=== PATIENT | female | born 1965 | race Caucasian/White ===

== ENCOUNTER 2016-05-18 14:07 | Emergency (ER) | payer BC, OTHER ==
[2016-05-18 14:12] VITALS: BP 121/83; PULSE 65; TEMP 98.1; BMI 22.6
--- NOTE | 2016-05-18 14:34 | PDOC ---
History of Present Illness - General History Source: Patient Exam Limitations: No Limitations <Twila Urbina - Last Filed: 05/18/16 16:30> - General History Source: Patient Exam Limitations: No Limitations <Yeni Jimenez - Last Filed: 05/18/16 16:37> - General Chief Complaint: Chest Pain Stated Complaint: CHEST PAIN Time Seen by Provider: 05/18/16 14:24 - History of Present Illness Initial Comments: 05/18/16 16:36 The patient is a 50-year-old female, with no significant past medical history, who presents to the emergency department with intermittent right chest pain for a week. The patient states the pain is localized across her right chest, is exacerbated during inspiration, is a severity of 7/10 at the end of a breath, and a severity of 3/10 when lying flat. She describes the right chest pain as stabbing and sore. She reports the chest pain is not modified by exertion or touch, but is worsened when leaning back or tensing. She states the chest pain started last week at work, lasted for a few hours, and went away when she went to sleep. The chest pain returned throughout last night and has worsened since. She reports associated dizziness. She denies any trauma or other pain. She reports her daughter had a cold recently. The patient denies chest pain, calf pain, shortness of breath, edema, and headache. The patient denies fever, chills, nausea, vomit, diarrhea and constipation. The patient denies any urinary complaints. She denies recent travel. Allergies: No known drug allergies Family PMHx: early heart disease (paternal side) Social history: Denies smoking, ETOH, or recreational drug use. (Yeni Jimenez) Past History - Past Medical History Other medical history: denies - Psycho/Social/Smoking Cessation Hx Anxiety: No Suicidal Ideation: No Smoking History: Never smoked Information on smoking cessation initiated: No Hx Alcohol Use: No Drug/Substance Use Hx: No Substance Use Type: None <Twila Urbina - Last Filed: 05/18/16 16:30> <Yeni Jimenez - Last Filed: 05/18/16 16:37> - Past Medical History Allergies/Adverse Reactions: Allergies Allergy/AdvReac Type Severity Reaction Status Date / Time No Known Allergies Allergy Verified 05/18/16 14:11 Home Medications: Ambulatory Orders NK [No Known Home Medication] 05/18/16 Review of Systems <Twila Urbina - Last Filed: 05/18/16 16:30> - Review of Systems Able to Perform ROS?: Yes <Yeni Jimenez - Last Filed: 05/18/16 16:37> - Review of Systems Comments:: 05/18/16 16:36 GENERAL/CONSTITUTIONAL: No: fever, chills, weakness. HEAD, EYES, EARS, NOSE AND THROAT: No: change in vision, ear pain, discharge, sore throat, throat swelling. CARDIOVASCULAR: Present: (+) right-sided chest pain, (+) dizziness No: palpitations, syncope RESPIRATORY: No: cough, shortness of breath, wheezing, hemoptysis, stridor. GASTROINTESTINAL: No: nausea, vomiting, abdominal cramping, diarrhea, rectal bleeding, constipation. GENITOURINARY: No: dysuria, hematuria, frequency, urgency, flank pain. MUSCULOSKELETAL: No: back pain, neck pain, joint pain, muscle swelling or pain SKIN AND BREASTS: No: lesions, pallor, rash or easy bruising. NEUROLOGIC: No: headache, vertigo, paresthesias, weakness ENDOCRINE: No: unexplained weight gain or loss HEMATOLOGIC/LYMPHATIC: No: anemia, easy bleeding, swelling nodes (Yeni Jimenez) *Physical Exam <Twila Urbina - Last Filed: 05/18/16 16:30> <Yeni Jimenez - Last Filed: 05/18/16 16:37> - Vital Signs Last Vital Signs Temp Pulse Resp BP Pulse Ox 98.1 F 65 18 121/83 98 05/18/16 14:09 05/18/16 14:09 05/18/16 14:09 05/18/16 14:09 05/18/16 14:09 - Physical Exam Comments: 05/18/16 16:36 GENERAL: The patient is in no acute distress. HEAD: Normal with no signs of trauma. EYES: PERRLA, EOMI, sclera anicteric, conjunctiva clear. ENT: Ears normal, nares patent, oropharynx clear without exudates. Moist mucous membranes. NECK: Normal range of motion, supple without lymphadenopathy, JVD, or masses. LUNGS: Breath sounds equal, clear to auscultation bilaterally. No wheezes, and no crackles. HEART: (+) Chest pain with inspiration. Regular rate and rhythm, normal S1 and S2 without murmur, rub or gallop. ABDOMEN: Soft, nontender, normoactive bowel sounds. No guarding, no rebound. EXTREMITIES: Normal range of motion, no edema. No clubbing or cyanosis. No erythema, or tenderness. NEUROLOGICAL: Cranial nerves II through XII grossly intact. Normal speech. No focal neurological deficits. MUSCULOSKELETAL: Back non-tender to palpation, no CVA tenderness SKIN: Warm, Dry, normal turgor, no rashes or lesions noted. (Yeni Jimenez) Heart Score/ECG Review #1 ECG reviewed & interpreted by me at: 14:34 General ECG Interpretation: Sinus Rhythm, Normal Rate, Normal Intervals, No acute ischemic changes <Twila Urbina - Last Filed: 05/18/16 16:30> ED Treatment Course - LABORATORY CBC & Chemistry Diagram: 05/18/16 14:39 05/18/16 14:39 <Twila Urbina - Last Filed: 05/18/16 16:30> - LABORATORY CBC & Chemistry Diagram: 05/18/16 14:39 05/18/16 14:39 <Yeni Jimenez - Last Filed: 05/18/16 16:37> - ADDITIONAL ORDERS Additional order review: Laboratory Results 05/18/16 05/18/16 05/18/16 14:39 14:39 14:39 D-Dimer < 200 Sodium 143 Potassium 3.9 Chloride 101 Carbon Dioxide 33 H Anion Gap 9 BUN 10 Creatinine 0.5 L Creat Clearance w eGFR > 60 Random Glucose 71 L Calcium 8.9 Total Bilirubin 0.4 AST 10 L ALT 15 Alkaline Phosphatase 79 Creatine Kinase 47 Troponin I < 0.02 Total Protein 7.1 Albumin 4.2 05/18/16 14:39 RBC 4.68 MCV 86.0 MCHC 32.9 RDW 12.6 MPV 7.9 Neutrophils % 73.7 Lymphocytes % 17.3 Monocytes % 7.4 Eosinophils % 1.1 Basophils % 0.5 - RADIOLOGY Radiograph Interpretation: 05/18/16 16:37 RAD/CHEST X-RAY PORTABLE Reviewed by: Dr. Twila Urbina Interpreted by: Dr. Simon Irwin IMPRESSION: No acute pathology. No comparison studies. (Yeni Jimenez) - Medications Given in the ED: ED Medications Discontinued Medications Generic Name Dose Route Start Last Admin Trade Name Soumya PRN Reason Stop Dose Admin Ibuprofen 600 mg 05/18/16 14:43 05/18/16 15:04 Motrin - PO 05/18/16 14:44 600 mg ONCE ONE Administration Medical Decision Making <CarlitosTwila - Last Filed: 05/18/16 16:30> <Yeni Jimenez - Last Filed: 05/18/16 16:37> - Medical Decision Making 05/18/16 14:34 A portion of this note was documented by scribe services under my direction. I have reviewed the details of the note, within reason, and agree with the documentation with the following case summary and management plan written by me. Nursing documentation reviewed and incorporated into medical decision making CXR: normal 05/18/16 16:04 Laboratory Tests 05/18/16 05/18/16 05/18/16 14:39 14:39 14:39 WBC 8.3 Hgb 13.2 Hct 40.3 Plt Count 281 D-Dimer < 200 Sodium 143 Potassium 3.9 Chloride 101 Carbon Dioxide 33 H BUN 10 Creatinine 0.5 L Random Glucose 71 L Creatine Kinase Troponin I 05/18/16 14:39 WBC Hgb Hct Plt Count D-Dimer Sodium Potassium Chloride Carbon Dioxide BUN Creatinine Random Glucose Creatine Kinase 47 Troponin I < 0.02 05/18/16 16:30 Trop negative having had pain since last night EKG non ischemic D Dimer negative CXR negative Pt states she feels better Will discharge to home Follow up with PMD Pt given copies of all results including EKG Clinical Impression: right chest pain (Twila Urbina) *DC/Admit/Observation/Transfer - Discharge Dispostion Admit: No <Twila Urbina - Last Filed: 05/18/16 16:30> <Yeni Jimenez - Last Filed: 05/18/16 16:37> Diagnosis at time of Disposition: Chest pain Qualifiers: Chest pain type: chest pain on breathing Qualified Code(s): R07.1 - Chest pain on breathing - Discharge Dispostion Disposition: HOME Condition at time of disposition: Improved - Patient Instructions Printed Discharge Instructions: DI for Atypical Chest Pain, DI for Chest Pain Additional Instructions: Ms Heller Thank you for coming in to the ER today I am sorry that you were having chest pain Please take motrin or tylenol for pain Please avoid heavy lifting Please return to the ER for any other concerns or complaints, recurrence of symptoms, new symptoms - Post Discharge Activity Work/School Note: Back to Work - Attestations Scribe Attestion: 05/18/16 16:37 Documentation prepared by Yeni Jimenez, acting as medical field representative for Twila Urbina MD. (Yeni Jimenez)
[2016-05-18] MEDS ORDERED: IBUPROFEN 600 MG TABLET (FP) PO ONE ×2 (14:43→15:02)
[2016-05-18 15:21] LABS: BASOPHIL 0.5 % (0-2.0); EOSINOPHIL 1.1 % (0-4.5); MCH 28.3 pg (25.7-33.7); MCHC 32.9 g/dl (32.0-36.0); MEAN PLT VOLUME 7.9 fl (7.5-11.1); NEUTROPHILS 73.7 % (42.8-82.8); PLATELET COUNT 281 K/MM3 (134-434); RDW 12.6 % (11.6-15.6); WHITE BLOOD COUNT 8.3 K/mm3 (4.0-10.0)
[2016-05-18 15:46] LABS: ALBUMIN 4.2 g/dl (3.4-5.0); ANION GAP 9 (8-16); BILIRUBIN,TOTAL 0.4 mg/dL (0.2-1.0); CALCIUM 8.9 mg/dL (8.5-10.1); CO2 33 mmol/L (21-32); CREATININE 0.5 mg/dL (0.55-1.02); GLUCOSE,RANDOM 71 mg/dL (74-106); SGOT/AST 10 U/L (15-37); SGPT/ALT 15 U/L (12-78); TOT PROT 7.1 g/dl (6.4-8.2); TROPONIN I < 0.02 ng/ml (0.00-0.05)
[2016-05-18 15:47] LABS: ALK PHOS 79 U/L (45-117)
--- NOTE | 2016-05-18 23:30 | EKG ---
Test Reason : Blood Pressure : / mmHG Vent. Rate : 070 BPM Atrial Rate : 070 BPM P-R Int : 150 ms QRS Dur : 082 ms QT Int : 412 ms P-R-T Axes : 062 054 045 degrees QTc Int : 444 ms NORMAL SINUS RHYTHM WITH SINUS ARRHYTHMIA NORMAL ECG NO PREVIOUS ECGS AVAILABLE Confirmed by MARYSOL CUNNINGHAM, BHARAT ([id number]) on 05/18/2016 11:30:20 PM Referred By: Confirmed By:BHARAT GREGG MD
== END 2016-05-18 16:53 | disposition home or self-care (01) ==
LOC: JER 14:07
DX: R07.1 Chest pain on breathing (principal)
CPT/HCPCS: 36415; 71010-TC; 80053; 82550; 84484; 85025; 85379; 93005; 93010; 99285-25

== ENCOUNTER 2022-09-13 13:44 | Emergency (ER) | payer BC, OTHER ==
[2022-09-13 13:51] VITALS: BP 130/85; PULSE 86; RESP 18; TEMP 98.5; BMI 21.7
[2022-09-13] MEDS ORDERED: DIPHTH,PERTUSS(ACELL),TET 0.5 ML DISP.SYRIN IM ONE (14:06)
[2022-09-13] MEDS ORDERED: LIDOCAINE 2.5%/PRILOCAINE 2.5% (5 Gram/TUBE) TP ONE ×2 (14:06)
== END 2022-09-13 15:03 | disposition home or self-care (01) ==
LOC: FER 13:44
PROC: 0HQGXZZ Repair Left Hand Skin, External Approach (ICD-10-PCS; principal; 2022-09-13)
PROC: 3E0234Z Introduction of Serum, Toxoid and Vaccine into Muscle, Percutaneous Approach (ICD-10-PCS; 2022-09-13)
DX: S61.211A Laceration without foreign body of left index finger without damage to nail, initial encounter (principal); W27.1XXA Contact with garden tool, initial encounter
CPT/HCPCS: 73140-TC-LT-FY; 90715; 99283-25

== ENCOUNTER 2022-10-24 12:40 | Emergency (ER) | payer OTHER, BC ==
[2022-10-24 12:52] VITALS: BP 132/70; PULSE 98; RESP 18; TEMP 97.8; BMI 21.9
[2022-10-24] MEDS ORDERED: IBUPROFEN 400 MG TABLET (FP) PO ONE ×2 (12:58→13:05)
== END 2022-10-24 15:21 | disposition home or self-care (01) ==
LOC: FER 12:40
DX: S62.101A Fracture of unspecified carpal bone, right wrist, initial encounter for closed fracture (principal); S52.501A Unspecified fracture of the lower end of right radius, initial encounter for closed fracture; W01.0XXA Fall on same level from slipping, tripping and stumbling without subsequent striking against object, initial encounter
CPT/HCPCS: 73110-TC-RT-FY; 99283-25

== ENCOUNTER 2023-10-16 12:40 | Emergency (ER) | payer BC, OTHER ==
[2023-10-16 13:06] VITALS: BP 119/75; PULSE 70; RESP 20; TEMP 97.8; BMI 29.3
[2023-10-16 13:27] LABS: HEMATOCRIT 41.5 % (32.4-45.2); HEMOGLOBIN 13.8 G/dL (10.7-15.3); MCH 28.9 pg (25.7-33.7); MCHC 33.2 g/dl (32.0-36.0); MEAN CELL VOLUME 86.9 fl (80-96); MEAN PLT VOLUME 7.5 fl (7.5-11.1); PLATELET COUNT 270.7 10^3/uL (134-434); RBC 4.77 10^6/uL (3.60-5.2); RDW 13.4 % (11.6-15.6); WHITE BLOOD COUNT 6.7 10^3/uL (4.0-10.8)
[2023-10-16] MEDS ORDERED: ACETAMINOPHEN INJECTION 100 ML IVPB ONE (13:35)
[2023-10-16] MEDS ORDERED: ONDANSETRON 4 MG/2 ML VIAL ONE (13:35)
[2023-10-16] MEDS ORDERED: FAMOTIDINE 20 MG/50 ML IVPB 20 MG/50 ML MG IVPB ONE (13:36)
[2023-10-16 13:39] LABS: ALBUMIN 4.4 g/dl (3.4-5.0); ALK PHOS 74 U/L (45-117); ANION GAP 9 mmol/L (4-13); BILIRUBIN,TOTAL 0.7 mg/dl (0.2-1); CALCIUM 9.5 mg/dl (8.5-10.1); CHLORIDE 99 mmol/L (98-107); CO2 28 mmol/L (21-32); CREATININE 0.6 mg/dl (0.6-1.3); GLUCOSE,RANDOM 104 mg/dl (74-106); MAGNESIUM 1.9 mg/dL (1.8-2.4); PHOSPHOROUS 3.3 (2.5-4.9); POTASSIUM 3.8 mmol/L (3.5-5.1); SGOT/AST 13 U/L (15-37); SGPT/ALT 7 U/L (7-52); SODIUM 136 mmol/L (136-145); TOT PROT 6.8 g/dl (6.4-8.2)
[2023-10-16 13:43] LABS: PLATELET ESTIMATE ADEQUATE
[2023-10-16] MEDS: SODIUM CHLORIDE 0.9% 1000 ML INFUS.BAG IV ONE (13:43)
[2023-10-16] MEDS: ACETAMINOPHEN 1000 MG/100 ML BAG IVPB ONE (13:44)
[2023-10-16] MEDS: ONDANSETRON 4 MG/2 ML VIAL IVPUSH ONE (13:45)
[2023-10-16] MEDS: FAMOTIDINE 20 MG/50 ML IVPB 20 MG/50 ML MG IVPB ONE (13:45)
[2023-10-16 13:56] LABS: EPITHELIAL CELLS 0-5 /hpf
[2023-10-16] MEDS: SODIUM CHLORIDE 0.9% 500 ML INFUS.BAG IV ONE (15:02)
== END 2023-10-16 15:22 | disposition home or self-care (01) ==
LOC: FER 12:40
PROC: 3E033GC Introduction of Other Therapeutic Substance into Peripheral Vein, Percutaneous Approach (ICD-10-PCS; principal; 2023-10-16)
PROC: 3E033GC Introduction of Other Therapeutic Substance into Peripheral Vein, Percutaneous Approach (ICD-10-PCS; 2023-10-16)
PROC: 3E033GC Introduction of Other Therapeutic Substance into Peripheral Vein, Percutaneous Approach (ICD-10-PCS; 2023-10-16)
DX: F41.9 Anxiety disorder, unspecified (principal)
CPT/HCPCS: 36415; 80053; 81003; 81015; 83735; 84100; 84484; 85027; 87086; 99284-25; J0131